=== PATIENT | female | born 1995 | race Caucasian/White ===

== ENCOUNTER 2018-03-03 08:50 | Inpatient (IN) ==
[2018-03-04] MEDS ORDERED: ACETAMINOPHEN 500 MG TABLET PO PRN (17:00)
[2018-03-04] MEDS ORDERED: MAG-AL + SIM ORAL LIQUID 30ml PO PRN (17:00)
[2018-03-04] MEDS ORDERED: METHYLERGONOVINE 0.2 MG/ML INJECTION IM PRN (17:00)
[2018-03-04] MEDS ORDERED: CARBOPROST 250 MCG/ML INJECTION IM PRN (17:00)
[2018-03-04] MEDS ORDERED: CALCIUM CARBONATE Chewable 500mg TABLET PO PRN (17:00)
[2018-03-04] MEDS ORDERED: SALINE FLUSH 10ml SYRINGE IV PRN (17:00)
[2018-03-04] MEDS ORDERED: TERBUTALINE 1 MG/ML VIAL SQ PRN (17:00)
[2018-03-04] MEDS ORDERED: LIDOCAINE 1% (10mg/ml) 2mL INJ PF SDV ID PRN (17:00)
[2018-03-04] MEDS ORDERED: DINOPROSTONE 10 MG VAGINAL INSERT VG ONE (17:00)
--- OUTSIDE RECORDS SUMMARY | 2018-03-04 17:01 | External Medical Summary ---
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
--- OUTSIDE RECORDS SUMMARY | 2018-03-04 17:01 | External Medical Summary | Continuity of Care Document ---
:1995 Author Organization [facility] Address [address] [place], [place] [id number] Phone Care Team Providers Name Role Phone Giuliano Reagan MD Unavailable Unavailable Allergies, Adverse Reactions, Alerts Substance Reaction Severity Status No Known Drug Allergies Unknown Active Medications Medication Instructions Dosage Effective Dates Status Comments (start - stop) valacyclovir 500 mg take 1 tablet by - Active tablet oral route every 12 hours for 5 days multivitamin tablet take 1 tablet by Not Available - Active oral route every day with food 28 mg take 1 tablet by Not Available - Active iron-800 mcg tablet oral route every day Problems Condition Effective Dates (start - stop) Clinical Status Other viral diseases complicating - , first trimester Encntr for suprvsn of normal first - preg, first trimester 9 weeks gestation of - Encntr for suprvsn of normal first - preg, first trimester 11 weeks gestation of - Herpes Simplex Virus Active Procedures Procedure Date Immuniz admnin, 1 vac, sngl/combo 19 Yrs + Flu Vaccine - Quadrivalent Initial OB Visit No Charge - [employer] Results Test Name Date and Time Measure Units Reference Range Abnormal Flag Comments Panel Description: OBSTETRIC PANEL WHITE BLOOD CELL 11.3 Thousand/uL 3.8-10.8 H COUNT 08:05:00 RED BLOOD CELL 3.85 Million/uL 3.80-5.10 N COUNT 08:05:00 HEMOGLOBIN 11.8 g/dL 11.7-15.5 N 08:05:00 HEMATOCRIT 34.7 % 35.0-45.0 L 08:05:00 MCV 90.1 fL 80.0-100.0 N 08:05:00 MCH 30.6 pg 27.0-33.0 N 08:05:00 MCHC 34.0 g/dL 32.0-36.0 N 08:05:00 RDW 12.6 % 11.0-15.0 N 08:05:00 PLATELET COUNT 280 Thousand/uL 140-400 N 08:05:00 MPV 10.6 fL 7.5-12.5 N 08:05:00 ABSOLUTE 7955 cells/uL 2717-2431 H NEUTROPHILS 08:05:00 ABSOLUTE 2678 cells/uL 850-3900 N LYMPHOCYTES 08:05:00 ABSOLUTE 497 cells/uL 200-950 N MONOCYTES 08:05:00 ABSOLUTE 136 cells/uL 15-500 N EOSINOPHILS 08:05:00 ABSOLUTE 34 cells/uL 0-200 N BASOPHILS 08:05:00 NEUTROPHILS 70.4 % N 08:05:00 LYMPHOCYTES 23.7 % N 08:05:00 MONOCYTES 4.4 % N 08:05:00 EOSINOPHILS 1.2 % N 08:05:00 BASOPHILS 0.3 % N 08:05:00 ANTIBODY SCREEN, NO ANTIBODIES N RBC W/REFL ID, 08:05:00 DETECTED Reference range TITER AND AG No antibodies detected This assay is a screening test for the detection of red blood cell antibodies. The test is not to be used for pretransfusion screening or for the medical management of an alloimmunized . ABO GROUP B 08:05:00 RH TYPE RH(D) 08:05:00 POSITIVE RPR (DX) W/REFL NON-REACTIVE NON-REACTIV N TITER AND 08:05:00 E CONFIRMATORY TESTING HEPATITIS B NON-REACTIVE NON-REACTIV N SURFACE ANTIGEN 08:05:00 E RUBELLA ANTIBODY 6.74 index N Index (IGG) 08:05:00 Interpretation ----- <0.90 Not consistent with Immunity 0.90-0.99 Equivocal > or=1.00 Consistent with Immunity The presence of rubella IgG antibody suggests immunization or past or current infection withrubella virus.Test performed at [facility] [place] [address]Wmotqig r: LIDIA POWERS DO,MPH Panel Description: HIV 1/2 ANTIGEN/ANTIBODY,FOURTH GENERATION W/RFL HIV NON-REACTIVE NON-REACTIVE N HIV-1 antigen and HIV-1/HIV- 2 antibodies were AG/AB, 08:05:00 notdetected. There is no laboratory evidence of 4TH GEN HIVinfection. PLEASE NOTE: This information has been disclosed toyou from records whose confidentiality may beprotected by state law. If your state requires suchprotection, then the state law prohibits you frommaking any further disclosure of the informationwithout the specific written consent of the personto whom it pertains, or as otherwise permitted by law.A general authorization for the release of medical orother information is NOT sufficient for this purpose. For additional information please refer tohttp://education.AdXpose/faq/FMJ036(This link is being provided for informational/educational purposes only.) The performance of this assay has not been clinicallyvalidated in patients less than 2 years old. REPORT COMMENT:FASTING:NOTest performed at [facility] [id number] [facility] [place] [address]Kabrqznv: LIDIA POWERS DO,MPH Panel Description: Bacteria identified in Urine by Culture CULTURE, URINE, SEE NOTE CULTURE, URINE, ROUTINE MICRO ROUTINE 15:19:00 NUMBER: [id number] TEST STATUS: FINAL SPECIMEN SOURCE: URINE SPECIMEN QUALITY: ADEQUATE RESULT: Multiple organisms present, each less than 10,000 CFU/mL. These organisms, commonly found on external and internal genitalia, are considered to be colonizers. No further testing performed.REPORT COMMENT:RFASTING:UNKNOWNTest performed at [facility] [id number] [place] [address]Sbofelpy: LIDIA POWERS DO,MPH Panel Description: CHLAMYDIA/N. GONORRHOEAE RNA, TMA CHLAMYDIA DETECTED NOT DETECTED A A positive CT or NG TRACHOMATIS RNA, 15:18:00 Nucleic Acid TMA Amplification Test(NAAT) result should be interpreted in conjunctionwith other laboratory and clinical data available tothe clinician. If clinically indicated, further testing can be performed on the same sample usingan alternate molecular target. To order alternatetarget test use 85115 (C. trachomatis) or 13130 (N. gonorrhoeae). NEISSERIA NOT DETECTED NOT DETECTED N GONORRHOEAE RNA, 15:18:00 TMA [id number] SEE NOTE This test was 15:18:00 performed using the [employer] COMBO2 Assay([employer] The analytical performance characteristics of this assay, when used to test SurePath specimens havebeen determined by [employer]. REPORT COMMENT:FASTING:UNKNO WNTest performed at [facility] [id number] [place] [address]Wwmohmio: LIDIA POWERS DO,MPH Panel Description: Pap Smear, Autocyte Document Pap Smear 14:15:00 See scanned report Advance Directives Directive Yes / No Effective Date File Name Unknown Encounters Encounter Practice Location Reason(s) Diagnoses Date Provider Care Description For Visit Team Members [facility] Encntr for Rahul In Women suprvsn of normal -[address], first preg, first Medical [address], [email or web address] weeks [place], [place], gestation of Luis Felipe Lew [id number], 120, [place], tel:[phone] [place], [id number] , [place]. tel: [phone] Angel Zuleta Other viral Rahul In Womens diseases -[address], complicating Medical [address], , [place], [place], trimesterEncntr Luis Felipe Lew [id number], for suprvsn of 120, [place] normal first [place], tel:[phone] preg, [place], [address] [id number] weeks [id number] gestation of , [place]. tel:[phone] Family History Family Member Diagnosis Age At Onset No family history of Venous Thrombosis No family history of Breast Cancer No family history of Ovarian Cancer Maternal Grandfather Esophageal Cancer No family history of Colon Cancer No family history of Pulmonary Embolism No family history of Lung Disease No family history of Stroke No family history of Uterine Cancer No family history of Cardiovascular Disease No family history of Osteoporosis No family history of Epilepsy No family history of Diabetes No family history of Thyroid Disorder No family history of Kidney Disease No family history of Hypertension Immunizations Vaccine Date Status Comments Influenza, injectable, completed Source: New Immunization Record quadrivalent, preservative free, 3 yrs or older Payers Payer name Insurance type Covered democrat ID Authorization(s) R CI [id number] R CI [id number] Social History Type Description Quantity Date Captured Alcohol Use Details No Caffeine Use Details No Tobacco Use Status Never smoked tobacco Smoking Status Never smoker Vital Signs Date / Height Weight BMI Pulse Blood Temperature Respiratory Body Head BMI Time: Rate Pressure Rate Surface Circumference percentile Area 180.00 31.8 113/80 2017 lbs 8 mm[Hg] 2:32 kg/m PM eter (2) Chief Complaint And Reason For Visit Unknown Chief Complaint And Reason For Visit Reason For Referral Reason For Referral Unknown Plan Of Care Date Type Action Status Appointment Norma Foote BOOKED Date Type Problem Goal Intervention Status Start Date Unknown. History Of Present Illness Encounter Date Complaint History Of Present Illness This patient has no known history of present illness Functional Status Encounter Date Functional Assessment Cognitive Assessment Unknown Medications Administered Medication Instructions Dosage Effective Dates (start - stop) Status Comments Drug Treatment Unknown Instructions Date Instruction Additional Information anticipated course of care nutrition and weight gain counseling, special diet toxoplasmosis precautions (cats / raw meat) sexual activity exercise indications for ultrasound influenza vaccine environmental / work hazards travel tobacco (ask, advise, assess, assist and arrange) alcohol illicit / recreational drugs use of any medications (including supplements, vitamins, herbs, OTC drugs) HIV and other routine tests risk factors identified by history smoking counseling domestic violence seat belt use childbirth classes / hospital facilities hospital registration genetic testing new ob handbook
--- OUTSIDE RECORDS SUMMARY | 2018-03-04 17:02 | External Medical Summary | Continuity of Care Document ---
:1995 Author Organization [facility] Address [address] [place], [place] [id number] Phone Care Team Providers Name Role Phone Giuliano Reagan MD Unavailable Unavailable Allergies, Adverse Reactions, Alerts Substance Reaction Severity Status No Known Drug Allergies Unknown Active Medications Medication Instructions Dosage Effective Dates Status Comments (start - stop) acyclovir 400 mg take 1 by Oral route Not Available - Active tablet every 8 hours until delivery 28 mg take 1 tablet by Not Available - Active iron-800 mcg oral route every tablet day iron 325 mg (65 mg take 1 tablet by 325 MG - Active iron) tablet oral route every day Problems Condition Effective Dates (start - stop) Clinical Status Encntr for suprvsn of normal first - preg, third trimester 36 weeks gestation of - Encntr for suprvsn of normal first - preg, first trimester 11 weeks gestation of - Other viral diseases complicating - , third trimester Encntr for suprvsn of normal first - preg, third trimester 38 weeks gestation of - Uterine size-date discrepancy, third - trimester 38 weeks gestation of - Oth infect w sexl mode of transmiss - comp preg, second tri Encntr for suprvsn of normal first - preg, second trimester 27 weeks gestation of - Other viral diseases complicating - , first trimester Encntr for suprvsn of normal first - preg, first trimester 9 weeks gestation of - Abnormal Pap, LSIL Encntr for suprvsn of normal first preg, third trimester 30 weeks gestation of - Encntr for suprvsn of normal first - preg, second trimester 23 weeks gestation of - Encntr for suprvsn of normal first - preg, second trimester Encounter For Screening For - Malformations 16 weeks gestation of - Encntr for suprvsn of normal first - preg, second trimester 19 weeks gestation of - Encntr for suprvsn of normal first - preg, third trimester 37 weeks gestation of - Encntr for suprvsn of normal first - preg, third trimester 34 weeks gestation of - Encntr for suprvsn of normal first - preg, third trimester 32 weeks gestation of - Encounter For Screening For - Malformations 19 weeks gestation of - Herpes Simplex Virus Active Procedures Procedure Date OB Visit No Charge Immuniz admnin, 1 vac, sngl/combo 19 Yrs + TDAP VACCINE >7 IM Results Test Name Date and Time Measure Units Reference Range Abnormal Flag Comments Panel Description: Strep Gp B Culture Strep Gp B Positive Negative A Centers for Disease Control Culture 14:15:00 and Prevention (CDC) and [place] Congressof Obstetricians and Gynecologists (ACOG) guidelines for prevention ofperinatal group B streptococcal (GBS) disease specify co-collection ofa vaginal and rectal swab specimen to maximize sensitivity of GBSdetection. Per the CDC and ACOG, swabbing both the lower vagina andrectum substantially increases the yield of detection compared withsampling the vagina alone. .Penicillin G, ampicillin, or cefazolin are indicated for intrapartumprophylaxis of GBS colonization. Reflex susceptibilitytesting should be performed prior to use of clindamycin only on GBSisolates from penicillin-allergic women who are considered a high riskfor anaphylaxis. Treatment with vancomycin without additional testingis warranted if resistance to clindamycin is noted. Advance Directives Directive Yes / No Effective Date File Name Unknown Encounters Encounter Practice Location Reason(s) Diagnoses Date Provider Care Team Description For Visit Members [facility] Other viral Felipe-0 Rahul In Womens diseases 6-201 [place]. [facility] [place], complicating 8 Medical [address] , third Center 1522, trimesterEncntr Luis Felipe Lew, for suprvsn of 120, [place], normal first [place], [id number], preg, third [place], [email or web address] weeks tel: gestation of , [place]. tel: [phone] Angel Zuleta Uterine size-date Felipe-0 Rahul In Womens Ultrasound discrepancy, - [place]. [facility], third [email or web address] 8 Medical PO Box weeks gestation Center 1522, of Luis Felipe Lew, [facility], [place], Song, , [place], [place] tel: , [place]. tel: [phone] Angel Zuleta Encntr for May-3 Rahul In Womens suprvsn of normal 1-201 [place]. [facility] [place], first preg, third 8 Medical PO Box [email or web address] weeks Center 1522, gestation of Luis Felipe Lew, 120, [place], Song, [id number], [place], [place] [id number] tel: , [place]. tel: [phone] Angel Carmona for May-2 Rahul Referring In Womens suprvsn of normal 4-201 [place]. 700 Provider: [facility] [place], first preg, third 8 Medical [place] PO Box [email or web address] weeks Center Rahul R, 1522, gestation of Luis Felipe Lew, 120, Medical [place], [place], [place] , [place], [facility] , [place] Song, tel: , [place]. [place] tel:[phone]. [id number] tel:[phone] Angel Zuleta May-1 Rahul In Womens 6-201 [place]. [facility], 8 Medical PO Box Center 1522, Luis Felipe Lew, 120, [place], [place], [id number], [place], [place] [id number] tel:+ , [place]. tel: [phone] [facility] Encntr for May-1 [facility]ul In Womens suprvsn of normal 0-201 [place]. [facility] [place], first preg, third 8 Medical PO Box weeks Center 1522, gestation of Luis Felipe Lew, 120, [place], [place], [id number], [place], [place] [id number] tel:+ , [place]. tel: [phone] [facility] Encntr for Apr-2 Rahul In Womens suprvsn of normal 5-201 [place]. [facility] [place], first preg, third 8 Medical PO Box [email or web address] weeks Center 1522, gestation of Luis Felipe Lew, 120, [place], [place], , [place], [place] [id number] tel:+ , [place]. tel: [phone] [facility] Abnormal Pap, Apr-1 Rahul In Womens LSILEncntr for 1-201 [place]. [facility] [place], suprvsn of normal 8 Medical PO Box first preg, third Center 1522, [email or web address] weeks Luis Felipe Lew, gestation of 120, [place], [place], , [place], [place] [id number] tel:+ , [place]. tel: [phone] [facility] Oth infect w sexl Mar-2 Rahul In Womens mode of transmiss 1-201 [place]. [facility] [place], comp preg, second 8 Medical PO Box triEncntr for Center 1522, suprvsn of normal Luis Felipe Lew, first preg, 120, [place], second Song, , [email or web address] weeks [place], [place] gestation of [id number] tel:+ , [place]. tel: [phone] [facility] Encntr for Feb-2 Rahul In Womens suprvsn of normal 2-201 [place]. [facility] [place], first preg, 8 Medical PO Box second Center 1522, [email or web address] weeks Luis Felipe Lew, gestation of 120, [place], [place], [id number], [place], [place] tel:+ , [place]. tel: [phone] [facility] Encntr for Alvarado-2 Rahul In Womens suprvsn of normal 5-201 [place]. [facility] [place], first preg, 8 Medical PO Box second Center 1522, [email or web address] weeks Luis Felipe Lew, gestation of 120, [place], [place], [id number], [place], [place] tel: , [place]. tel: [phone] [facility] Encounter For Alvarado-2 Rahul In Womens Ultrasound 5-201 [place]. [facility] [place], Screening For 8 Medical PO Box [email or web address] Center 1522, weeks gestation Luis Felipe Lew, of 120, [place], [place], [id number], [place], [place] tel: , [place]. tel: [phone] [facility] Encntr for Alvarado-0 Rahul In Womens suprvsn of normal 3-201 [place]. [facility] [place], first preg, 8 Medical PO Box second Center 1522, trimesterEncounte Luis Felipe Lew, r For 120, [place], Screening For [place], [id number], [email or web address] [place], [place] weeks gestation tel: of , . tel: [phone] [facility] Encntr for Nov-3 Rahul In Womens suprvsn of normal 0-201 [place]. [facility] [place], first preg, first 7 Medical PO Box [email or web address] weeks Center 1522, gestation of Luis Felipe Lew, 120, [place], [place], [id number], [place], [place] [id number] tel: , . tel: [phone] [facility] Other viral Nov-1 Rahul In Womens diseases 5-201 [place]. 700 [facility] [place], complicating 7 Medical PO Box , first Center 1522, trimesterEncntr Luis Felipe Lew, for suprvsn of 120, [place], normal first [place], [id number], preg, first [place], [place] trimester9 weeks tel:+ gestation of , [place]. tel:[phone] Family History Family Member Diagnosis Age At [...] of Hypertension Immunizations Vaccine Date Status Comments Tdap completed Source: New Immunization Record Influenza, injectable, completed Source: New Immunization Record quadrivalent, preservative free, 3 yrs or older Payers Payer name Insurance type Covered libertarian ID Authorization(s) [employer] [place] - Medicaid MC [id number] [facility] CI [id number] [employer] [place] - Medicaid MC [id number] [facility] CI [id number] Social History Type Description Quantity Date Captured Alcohol Use Details No Caffeine Use Details Unknown Tobacco Use Status Unknown Smoking Status Never smoker Vital Signs Date / Height Weight BMI Pulse Blood Temperature Respiratory Body Head BMI Time: Rate Pressure Rate Surface Circumference percentile Area 227.90 40.3 / lbs 7 mm[Hg] 1:58 kg/m PM eter (2) Chief Complaint And Reason For Visit Unknown Chief Complaint And Reason For Visit Reason For Referral Reason For Referral Unknown Plan Of Care Date Type Action Status Appointment Norma Foote BOOKED Future Order: Radiology Order Ultrasound OB Follow-up ([id number]) Ordered Future Order: Radiology Order Complete OB Ultrasound > 14 Ordered Weeks ([id number]) Date Type Problem Goal Intervention Status Start [...]
--- OUTSIDE RECORDS SUMMARY | 2018-03-04 17:02 | External Medical Summary | Continuity of Care Document ---
:1995 Author Organization [facility] Address [address] [place], [place] [address] Phone Care Team Providers Name Role Phone Giuliano Reagan MD Unavailable Unavailable Allergies, Adverse Reactions, Alerts Substance Reaction Severity Status No Known Drug Allergies Unknown Active Medications Medication Instructions Dosage Effective Dates Status Comments (start - stop) valacyclovir 500 mg take 1 tablet by - Active tablet oral route every 12 hours for 5 days 28 mg take 1 tablet by Not Available - Active iron-800 mcg tablet oral route every day Problems Condition Effective Dates (start - stop) Clinical Status Oth infect w sexl mode of transmiss - comp preg, second tri Encntr for suprvsn of normal first - preg, second trimester 27 weeks gestation of - Encntr for suprvsn [...] second trimester 19 weeks gestation of - Encounter For Screening For - Malformations 19 weeks gestation of - Herpes Simplex Virus Active Procedures Procedure Date OB Visit No Charge Infct antign, chlamydia trac, ampl Neisseria Gonorrhea, Amplified DNA Results Test Name Date and Time Measure Units Reference Range Abnormal Flag Comments Panel Description: Glucose [Mass/volume] in Serum or Plasma --1 hour post 50 g glucose PO Gestational Diabetes 15:07:00 93 mg/dL 65-139 According to ADA, a glucose Screen threshold of >139 mg/dL after 50-gramload identifies approximately 80% of women with gestationaldiabetes mellitus, while the sensitivity is further increased toapproximately 90% by a threshold of >129 mg/dL. Panel Description: Hemoglobin [Mass/volume] in Blood Hemoglobin 15:07:00 10.7 g/dL 11.1-15.9 L Panel Description: Hematocrit [Volume Fraction] of Blood by Automated count Hematocrit 15:07:00 32.7 % 34.0-46.6 L Panel Description: GC/CT Amplified Probe Chlamydia Trachomatis RNA, TMA 14:21:57 Negative Negative N Neisseria Gonorrhoeae RNA, TMA 14:21:57 Negative Negative N Advance Directives Directive Yes / No Effective Date File Name Unknown Encounters Encounter Practice Location Reason(s) Diagnoses Date Provider Care Description For Visit Team Members Angel Zuleta Apr-0 Rahul In Womens 3-[address], 8 Medical PO Box Center 1522, Luis Felipe Lew, 120, [place], [place], [id number], [place], [place] [id number] tel: , [place]. [id number] tel: [phone] Angel Zuleta Oth infect w sexl Nov-2 Rahul In Women mode of transmiss 1-[address], comp preg, second 8 Medical PO Box triEncntr for Center 1522, suprvsn of normal Luis Felipe Lew, first preg, second 120, [place], [email or web address] weeks Song, [id number], gestation of [place], [place] [id number] tel:+ , [place]. tel: [phone] [facility] Encntr for suprvsn Feb-2 Rahul In Womens of normal first 2-201 [place]. 700 [facility] [place], preg, second 8 Medical PO Box [email or web address] weeks Center 1522, gestation of Luis Felipe Lew, 120, [place], [place], [id number], [place], [place] [id number] tel:+ , [place]. tel: [phone] [facility] Encntr for suprvsn Alvarado-2 Rahul In Womens of normal first 5-201 [place]. 700 [facility] [place], preg, second 8 Medical PO Box [email or web address] weeks Center 1522, gestation of Luis Felipe Lew, 120, [place], [place], [id number], [place], [place] [id number] tel:+ , [place]. tel: [phone] [facility] Encounter For Alvarado-2 Rahul In Womens Ultrasound Screening 5-201 [place]. 700 [facility] [place], For [email or web address] 8 Medical PO Box weeks gestation of Center 1522, Luis Felipe Lew, 120, [place], [place], [id number], [place], [place] tel: , [place]. tel: [phone] [facility] Encntr for suprvsn Alvarado-0 Rahul In Womens of normal first 3-201 [place]. 700 [facility] [place], preg, second 8 Medical PO Box trimesterEncounter Center 1522, For Luis Felipe Lew, Screening For 120, [place], [id number] [place], , weeks gestation of [place], [place] [id number] tel:+ , [place]. tel: [phone] Angel Zuleta Encntr for suprvsn Nov-3 Rahul In Womens of normal first 0-201 [place]. 700 [facility] [place], preg, first 7 Medical PO Box [email or web address] weeks Center 1522, gestation of Luis Felipe Lew, 120, [place], [place], [id number], [place], [place] [id number] tel: , [place]. tel: [phone] Angel Zuleta Other viral Nov-1 Rahul In Womens diseases 5-[address], complicating 7 Medical PO Box , first Center 1522, trimesterEncntr for Luis Felipe Lew, suprvsn of normal 120, [place], first preg, first [place], [id number], trimester9 weeks [place], [place] gestation of [id number] tel:+ , [place]. tel: [phone] Family History Family Member Diagnosis Age At [...] [employer] Plan Of [place] - Medicaid MC [id number] [facility] CI [id number] [facility] CI [id number] Social History Type Description Quantity Date Captured Alcohol Use Details No Caffeine Use Details Unknown Tobacco Use Status Unknown Smoking Status Never smoker Vital Signs Date / Height Weight BMI Pulse Blood Temperature Respiratory Body Head BMI Time: Rate Pressure Rate Surface Circumference percentile Area 209.00 37.0 125/2018 lbs 2 mm[Hg] 2:08 kg/m PM eter (2) Chief Complaint And Reason For Visit Unknown Chief Complaint And Reason For Visit Reason For Referral Reason For Referral Unknown Plan Of Care Date Type Action Status Future Order: Radiology Order Complete OB Ultrasound > 14 Ordered Weeks ([id number]) Date Type Problem Goal Intervention Status Start [...]
--- OUTSIDE RECORDS SUMMARY | 2018-03-04 17:02 | External Medical Summary | Continuity of Care Document ---
:1995 Author Organization [facility] [employer] [facility] Address [address] [place], [place] [phone] Phone Care Team Providers Name Role Phone [...] Herpes Simplex Virus Active Procedures Procedure Date Unknown Results Test Name Date and Time Measure Units Reference Range Abnormal Flag Comments Unknown Advance Directives Directive Yes / No Effective Date File Name Unknown Encounters Encounter Practice Location Reason(s) Diagnoses Date Provider Care Description For Visit Team Members [facility] Feb-0 Rahul In Womens 1-201 [place]. [facility] [place], 8 Medical PO Box Center [address], Luis Felipe Lew, 120, [place], [place], [id number], [place], [place] [id number] tel:+ , [place]. tel: [phone] [facility] Encntr for suprvsn Alvarado-2 Rahul In Womens of normal first 5-201 [place]. [facility] [place], preg, second 8 Medical PO Box [email or web address] weeks Center 1522, gestation of Luis Felipe Lew, 120, [place], [place], [id number], [place], [place] [id number] tel: , [place]. tel: [phone] [facility] Encounter For Alvarado-2 Rahul In Womens Ultrasound Screening 5-201 [place]. [facility] [place], For [id number] 8 Medical PO Box weeks gestation of Center 1522, Luis Felipe Lew, 120, [place], [place], , [place], [place] [id number] tel: , [place]. tel: [phone] [facility] Alvarado-1 Rahul In Womens 5-201 [place]. [facility] [place], 8 Medical PO Box Center [address], Luis Felipe Lew, 120, [place], [place], , [place] [id number] tel: , [place]. tel: [phone] [facility] Encntr for suprvsn Alvarado-0 Rahul In Womens of normal first 3-201 [place]. [facility] [place], preg, second 8 Medical PO Box trimesterEncounter Center 1522, For Luis Felipe Lew, Screening For 120, [place], [id number] [place], , weeks gestation of [place], [place] [id number] tel: , [place]. tel: [phone] [facility] Encntr for suprvsn Nov-3 Rahul In Womens of normal first 0-201 [place]. [facility] [place], preg, first 7 Medical PO Box [email or web address] weeks Center 1522, gestation of Luis Felipe Lew, 120, [place], [place], , [place] [id number] tel: , [place]. tel: [phone] [facility] Other viral Nov- Rahul In Womens diseases 5-[address], complicating 7 Medical PO Box , first Center 1522, trimesterEncntr for Luis Felipe Lew, suprvsn of normal 120, [place], first preg, first [place], [id number], trimester9 weeks [place], gestation of tel: , [place]. tel: [phone] Family History Family Member Diagnosis Age At [...] older Payers Payer name Insurance type Covered green party ID Authorization(s) U[facility] CI [id number] [employer] [place] - Medicaid MC [id number] R CI [id number] Social History Type Description Quantity Date Captured Unknown Vital Signs Date / Height Weight BMI Pulse Blood Temperature Respiratory Body Head BMI Time: Rate Pressure Rate Surface Circumference percentile Area Unknown Chief Complaint And Reason For Visit Unknown Chief Complaint And Reason For Visit Reason For Referral Reason For Referral Unknown Plan Of Care Date Type Action Status Appointment Norma Foote BOOKED Future Order: Radiology Order Complete OB Ultrasound > 14 Ordered Weeks (07137) Date Type Problem Goal Intervention Status Start [...]
--- OUTSIDE RECORDS SUMMARY | 2018-03-04 17:02 | External Medical Summary | Continuity of Care Document ---
:1995 Author Organization [facility] Address [address] [place], [place] [phone] Phone Care Team Providers Name Role Phone [...] first trimester 11 weeks gestation of - Encntr for suprvsn of normal first - preg, second trimester Encounter For Screening For - Malformations 16 weeks gestation of - Herpes Simplex Virus Active Procedures Procedure Date Unknown Results Test Name Date and Time Measure Units Reference Range Abnormal Flag Comments Unknown Advance Directives Directive Yes / No Effective Date File Name Unknown Encounters Encounter Practice Location Reason(s) Diagnoses Date Provider Care Description For Visit Team Members [facility] Encntr for suprvsn Sep-0 Rahul In Womens of normal first 3-[address], preg, second 8 Medical [address], [place], [place], For Luis Felipe Lew [id number], Screening For 120, [place] [id number] [place], tel:+[phone] [place], [id number] , [place]. tel: [phone] Angel [facility] Alvarado-0 Rahul In Womens 2-201 [place]. [facility] [place], 8 Medical [address], [place], [place], Luis Felipe Lew [id number], 120, [place], tel:[phone] [place], [id number] , [place]. tel: [phone] Angel [facility] Encntr for suprvsn Nov-3 Rahul In Womens of normal first 0-201 [place]. [facility] [place], preg, first 7 Medical [address], [email or web address] weeks [place], [place], gestation of Luis Felipe Lew [id number], 120, [place], tel:+[phone] [place], [phone] , [place]. tel: [phone] [facility] Other viral Nov-1 Rahul In Womens diseases 5-201 [place]. [facility] [place], complicating 7 Medical [address], , first Center [place], [place], trimesterEncntr for Luis Felipe Lew [id number], suprvsn of normal 120, [place] first preg, first [place], tel:+[phone] trimester9 [place], [address] gestation of [id number] , [place]. tel: [phone] Family History Family Member Diagnosis Age At [...] older Payers Payer name Insurance type Covered republican ID Authorization(s) [facility] CI [id number] [facility] CI [id number] Social History Type Description Quantity Date Captured Alcohol Use Details No Caffeine Use Details Unknown Tobacco Use Status Unknown Smoking Status Never smoker Vital Signs Date / Height Weight BMI Pulse Blood Temperature Respiratory Body Head BMI Time: Rate Pressure Rate Surface Circumference percentile Area 7 8 2:38 kg/m PM eter (2) Chief Complaint And Reason For Visit Unknown Chief Complaint And Reason For Visit Reason For Referral Reason For Referral Unknown Plan Of Care Date Type Action Status Appointment Norma Foote BOOKED Appointment Norma Foote BOOKED Date Type Problem [...]
--- OUTSIDE RECORDS SUMMARY | 2018-03-04 17:02 | External Medical Summary | Continuity of Care Document ---
:1995 Author Organization [facility] [employer] [facility] Address [address] [place], [place] [phone] Phone Care Team Providers Name Role Phone Giuliano Reagan MD Unavailable Unavailable Allergies, Adverse Reactions, Alerts Substance Reaction Severity Status No Known Drug Allergies Unknown Active Medications Medication Instructions Dosage Effective Dates Status Comments (start - stop) valacyclovir 500 take 1 tablet by - Active mg tablet oral route every 12 hours for 5 days 28 mg take 1 tablet by Not Available - Active iron-800 mcg oral route every tablet day multivitamin take 1 tablet by Not Available - Active tablet oral route every day with food Zithromax Z-Terrence take 2 by Oral - No Longer 250 mg tablet route on Day 1 Active then 1 tablet Day 2-5 Problems Condition Effective Dates (start - stop) Clinical Status Encntr for suprvsn of normal first - preg, first trimester 11 weeks gestation of - Other viral diseases complicating - , first trimester Encntr for suprvsn of normal first - preg, first trimester 9 weeks gestation of - Herpes Simplex Virus Active Procedures Procedure Date OB Visit No Charge - [employer] Results Test Name Date and Time Measure Units Reference Range Abnormal Flag Comments Unknown Advance Directives Directive Yes / No Effective Date File Name Unknown Encounters Encounter Practice Location Reason(s) Diagnoses Date Provider Care Description For Visit Team Members [facility] Encntr for Rahul In [facility] suprvsn of normal -[address], first preg, first Medical [address], [email or web address] weeks Center [place], gestation of Luis Felipe Lew [id number], 120, [place], tel:+21 [place], [id number] , [place]. tel: [phone] [facility] Other viral Rahul In Womens diseases -[address], complicating Medical [address], , first [place], trimesterEncntr Luis Felipe Lew [id number], for suprvsn of 120, [place] normal first [place], tel:+21 [place], [place], [address] trimester9 weeks [id number] gestation of , [place]. tel: [phone] Family History Family Member Diagnosis Age At [...] Insurance type Covered green party ID Authorization(s) [facility] CI [id number] [facility] CI [id number] Social History Type Description Quantity Date Captured Alcohol Use Details No Caffeine Use Details Unknown Tobacco Use Status Unknown Smoking Status Never smoker Vital Signs Date / Height Weight BMI Pulse Blood Temperature Respiratory Body Head BMI Time: Rate Pressure Rate Surface Circumference percentile Area 185.10 32.7 lbs 8 mm[Hg] 1:22 kg/m PM eter (2) Chief Complaint And [...]
--- OUTSIDE RECORDS SUMMARY | 2018-03-04 17:02 | External Medical Summary | Continuity of Care Document ---
:1995 Author Organization [facility] [employer] [place] Address [address] [place], [place] [phone] Phone Care Team Providers Name Role Phone [...] Description For Visit Team Members Angel [facility] Encntr for Rahul In [facility] suprvsn of normal -[address], first preg, first Medical [address], [email or web address] weeks Center [place], [place], gestation of Luis Felipe Lew [id number], 120, [place], tel:[phone] [place], [id number] , [place]. tel: [phone] Angel [facility] Rahul In Womens -2017 [place] [facility], Medical [address], Center [place], [place], Luis Felipe Lew [id number], 120, [place], tel:[phone] [place], [id number] , [place]. tel: [phone] [facility] Other viral Jul- Rahul In Womens diseases -2017 [facility], complicating Medical [address], , first Center [place], [place], trimesterEncntr , Luis Felipe [id number], for suprvsn of 120, [place] normal first [place], tel:+21 [place], [place], [address] trimester9 weeks [id number] gestation of , [place]. tel: [phone] Family History Family Member Diagnosis Age At [...] name Insurance type Covered democrat ID Authorization(s) [facility] CI [id number] [facility] CI [id number] Social History Type Description Quantity Date Captured [...]
--- OUTSIDE RECORDS SUMMARY | 2018-03-04 17:02 | External Medical Summary | Continuity of Care Document ---
:1995 Author Organization [facility] [employer] [facility] Address [address] [place], [place] [phone] Phone Care Team Providers Name Role Phone [...] first trimester 11 weeks gestation of - Oth infect w [...] Visit Team Members Angel [facility] Encntr for suprvsn January- Rahul In Womens of normal first 0-201 [place]. [facility] [place], preg, third 8 Medical PO Box [email or web address] weeks Center 1522, gestation of Luis Felipe Lew, 120, [place], [place], [id number], [place], [place] [id number] tel:+ , [place]. tel: [phone] Angel [place] Encntr for suprvsn Dec-2 Rahul In Womens of normal first 5-201 [place]. [facility] [place], preg, third 8 Medical PO Box [email or web address] weeks Center 1522, gestation of Luis Felipe Lew, 120, [place], [place], [id number], [place], [place] [id number] tel: , [place]. tel: [phone] Angel [facility] Apr-2 Rahul In Womens 5-201 [place]. [facility] [place], 8 Medical PO Box Center [address], Luis Felipe Lew, 120, [place], [place], [id number], [place], [place] [id number] tel:316 , [place]. tel:[phone] Angel [facility] Abnormal Pap, Apr-1 Rahul In Womens LSILEncntr for 1-201 [place]. [facility] [place], suprvsn of normal 8 Medical PO Box first preg, third Center 1522, [email or web address] weeks Luis Felipe Lew, gestation of 120, [place], [place], [id number], [place], [place] [id number] tel: , [place]. tel: [phone] [facility] Apr-0 Rahul In Womens 3-201 [place]. [facility] [place], 8 Medical PO Box [address], Luis Felipe Lew, 120, [place], [place], [id number], [place], [place] [id number] tel: , [place]. tel: [phone] [facility] Oth infect w sexl Mar-2 Rahul In Womens mode of transmiss 1-201 [place]. [facility] [place], comp preg, second 8 Medical PO Box triEncntr for Center 1522, suprvsn of normal Luis Felipe Lew, first preg, second 120, [place], [email or web address] weeks [place], , gestation of [place], [place] [id number] tel:+ , [place]. tel: [phone] [facility] Encntr for suprvsn Feb-2 Rahul In Womens of normal first 2-201 [place]. [facility] [place], preg, second 8 Medical PO Box [email or web address] weeks Center 1522, gestation of Luis Felipe Lew, 120, [place], [place], , [place], [place] [id number] tel:+ , [place]. tel: [phone] [facility] Encntr for suprvsn Alvarado-2 Rahul In Womens of normal first 5-201 [place]. [facility] [place], preg, second 8 Medical PO Box [email or web address] weeks Center 1522, gestation of Luis Felipe Lew, 120, [place], [place], [id number], [place], [place] [id number] tel:+ , [place]. tel: [phone] [facility] Encounter For Alvarado-2 Rahul In Womens Ultrasound Screening 5-201 [place]. [facility] [place], For [email or web address] 8 Medical PO Box weeks gestation of Center 1522, Luis Felipe Lew, 120, [place], [place], [id number], [place], [place] [id number] tel: , [place]. tel: [phone] Angel [facility] Encntr for suprvsn Alvarado-0 Rahul In Womens of normal first 3-201 [place]. [facility] [place], preg, second 8 Medical PO Box trimesterEncounter Center 1522, For Luis Felipe Lew, Screening For 120, [place], [email or web address] [place], [id number], weeks gestation of [place], [place] [id number] tel:+ , [place]. tel: [phone] [facility] Encntr for suprvsn Nov-3 Rahul In Womens of normal first 0-201 [place]. [facility] [place], preg, first 7 Medical PO Box [email or web address] weeks Center 1522, gestation of Luis Felipe Lew, 120, [place], [place], [id number], [place], [place] [id number] tel:+ , [place]. tel: [phone] [facility] Other viral Nov-1 Rahul In Womens diseases 5-201 [place]. 700 [facility] [place], complicating 7 Medical PO Box , first Center 1522, trimesterEncntr for Luis Felipe Lew, suprvsn of normal 120, [place], first preg, first [place], [id number], trimester9 weeks [place], [place] gestation of [id number] tel:+ , [place]. tel: [phone] Family History Family Member Diagnosis Age At [...] older Payers Payer name Insurance type Covered constitution party ID Authorization(s) [employer] [facility] [place] - Medicaid MC [id number] [facility] CI [id number] [facility] CI [id number] Social History Type Description Quantity Date Captured [...] Complete OB Ultrasound > 14 Ordered Weeks (28648) Date Type Problem Goal Intervention Status Start [...]
--- OUTSIDE RECORDS SUMMARY | 2018-03-04 17:02 | External Medical Summary | Continuity of Care Document ---
:1995 Author Organization [facility] [employer] [place] Address [address] [place], [place] [phone] Phone Care Team Providers Name Role Phone Giuliano Reagan MD Unavailable Unavailable Allergies, Adverse Reactions, Alerts Substance Reaction Severity Status No Known Drug Allergies Unknown Active Medications Medication Instructions Dosage Effective Dates Status Comments (start - stop) azithromycin 500 take 2 tablet by 1000 MG - Active mg tablet ORAL route every day for 1 day valacyclovir 500 take 1 tablet by - Active mg tablet oral route every 12 hours for 5 days multivitamin take 1 tablet by Not Available - Active tablet oral route every day with food valacyclovir 500 take 1 tablet by 500 MG - No Longer mg tablet oral route every Active 12 hours Problems Condition Effective Dates (start - stop) [...] Description For Visit Team Members Angel [facility] Rahul In Women -2016 [place] [address] [place], Medical [address], [facility] [place], , Luis Felipe [id number], 120, [place], tel:[phone] [place], [id number] , [place]. tel: [phone] Angel [facility] Other viral Rahul In [facility] diseases -2017 [place]. [facility] [place], complicating Medical [address], , first Center [place], trimesterEncntr , [facility] [id number], for suprvsn of 120, [place] normal first [place], tel:+21 [place], [place], [address] trimester9 weeks [id number] gestation of , [place]. tel: [phone] [facility] Christofer In Womens -2017 [place]. [facility], 700 [address], Medical [place], [place] [id number], , Luis Felipe [place] 120, tel:+21 [place], [address] [place], [id number] , [place]. tel: [phone] Family History Family Member Diagnosis Age At [...] name Insurance type Covered libertarian ID Authorization(s) [facility] CI [id number] [facility] CI [id number] Social History Type Description Quantity Date Captured Alcohol Use Details No Caffeine Use Details No Tobacco Use Status Never smoked tobacco Smoking Status Never smoker Non-Smoking Tobacco Use : No Details Available : No Details Available Details Vital Signs Date / Height Weight BMI [...]
--- OUTSIDE RECORDS SUMMARY | 2018-03-04 17:02 | External Medical Summary | Continuity of Care Document ---
:1995 Author Organization [facility] Address [address] [place], [place] [phone] Phone Care Team Providers Name Role Phone [...] tablet oral route every day with food 28 mg take 1 tablet by Not Available - Active iron-800 mcg oral route every tablet day azithromycin 500 take 2 tablet by 1000 MG - No Longer mg tablet ORAL route every Active day for 1 day Problems Condition Effective Dates (start - [...] Members Angel [place] Encntr for Rahul In [facility] suprvsn of normal -[address], first preg, first Medical [address], [email or web address] weeks Center [place], gestation of Luis Felipe Lew [id number], 120, [place], tel:+21 [place], [id number] , [place]. tel: [phone] [facility] Nov-17 Rahul In Womens -[address] [place], Medical [address], [place], Luis Felipe Lew [id number], 120, [place], tel:+[phone] [place], [id number] , [place]. tel: [phone] [facility] Other viral Nov-15 Rahul In Womens diseases -[address], complicating Medical [address], , first Center [place], [place], trimesterEncntr , Luis Felipe [id number], for suprvsn of 120, [place] normal first [place], tel:+21 preg, [place], [address] trimester9 weeks [id number] gestation of , [place]. tel: [phone] Family History Family Member Diagnosis Age At [...] Insurance type Covered constitution party ID Authorization(s) [facility] CI [id number] [facility] CI [id number] Social History Type Description Quantity Date Captured [...]
--- OUTSIDE RECORDS SUMMARY | 2018-03-04 17:02 | External Medical Summary | Continuity of Care Document ---
:1995 Author Organization [facility] [employer] [facility] Address [address] [place], [place] [phone] Phone Care Team Providers Name Role Phone [...] Description For Visit Team Members Angel Z[facility] Abnormal Pap, Dec- Rahul In Womens LSILEncntr for [place]. 700 [place], suprvsn of normal 8 Medical PO Box first preg, third Center 1522, [email or web address] weeks Luis Felipe Lew, gestation of 120, [place], [place], [id number], [place], [place] tel:+ , [place]. tel: [phone] Angel Zuleta Apr-0 Rahul In Womens 3-201 [place]. 700 [facility], 8 Medical PO Box Center [address], Luis Felipe Lew, 120, [place], [place], [id number], [place], [place] [id number] tel:+ , [place]. tel: [phone] Angel Z[place]ta Oth infect w sexl Nov-2 Rahul In Womens mode of transmiss - [place]. 700 [place], comp preg, second 8 Medical PO Box triEncntr for Center 1522, suprvsn of normal Luis Felipe Lew, first preg, second 120, [place], [email or web address] weeks [place], , gestation of [place], [place] [id number] tel:+ , [place]. tel: [phone] Angel [place] Encntr for suprvsn Oct-2 Rahul In Womens of normal first -201 [place]. 700 [facility] [place], preg, second 8 Medical PO Box [email or web address] weeks Center 1522, gestation of Luis Felipe Lew, 120, [place], [place], [id number], [place], [place] [id number] tel:+ , [place]. tel: [phone] Angel [place] Encntr for suprvsn Alvarado-2 Rahul In Womens of normal first 5-201 [place]. 700 [facility] [place], preg, second 8 Medical PO Box [email or web address] weeks Center 1522, gestation of Luis Felipe Lew, 120, [place], [place], [id number], [place], [place] [id number] tel:+ , [place]. tel: [phone] [facility] Encounter For Alvarado-2 Rahul In Womens Ultrasound Screening 5-201 [place]. 700 [facility] [place], For [id number] 8 Medical PO Box weeks gestation of Center 1522, Luis Felipe Lew, 120, [place], [place], [id number], [place], [place] [id number] tel:+ , [place]. tel: [phone] Angel [place] Encntr for suprvsn Alvarado-0 Rahul In Womens of normal first 3-201 [place]. [facility] [place], preg, second 8 Medical PO Box trimesterEncounter Center 1522, For Luis Felipe Lew, Screening For 120, [place], [id number] [place], [id number], weeks gestation of [place], [place] [id number] tel:+ , [place]. tel: [phone] Angel [place] Encntr for suprvsn Nov-3 Rahul In Womens of normal first 0-201 [place]. [facility] [place], preg, first 7 Medical PO Box [email or web address] weeks Center 1522, gestation of Luis Felipe Lew, 120, [place], [place], [id number], [place], [place] [id number] tel:+ , [place]. tel: [phone] Angel [facility] Other viral Nov-1 Rahul In Womens diseases 5-201 [place]. [facility] [place], complicating 7 Medical PO Box , first Center 1522, trimesterEncntr for Luis Felipe Lew, xiomara of normal 120, [place], first preg, first [place], [id number], trimester9 weeks [place], [place] gestation of [id number] tel:+316 , [place]. tel: [phone] Family History Family Member Diagnosis Age At [...] older Payers Payer name Insurance type Covered alliance party ID Authorization(s) [employer] [facility] [place] - Medicaid MC [id number] [facility] CI [id number] [facility] CI [id number] Social History Type Description Quantity Date Captured [...] Complete OB Ultrasound > 14 Ordered Weeks (27698) Date Type Problem Goal Intervention Status Start [...]
--- OUTSIDE RECORDS SUMMARY | 2018-03-04 17:02 | External Medical Summary | Continuity of Care Document ---
:1995 Author Organization [facility] Address [address] [place], [place] [phone] Phone Care Team Providers Name Role Phone [...] Effective Dates (start - stop) Clinical Status Abnormal Pap, LSIL Encntr for suprvsn of [...] Herpes Simplex Virus Active Procedures Procedure Date Colposcopy Of The Cervix Including Upper/adjacent Vagina OB Visit No Charge Results Test Name Date and Time Measure Units Reference Range Abnormal Flag Comments Unknown Advance Directives Directive Yes / No Effective Date File Name Unknown Encounters Encounter Practice Location Reason(s) Diagnoses Date Provider Care Description For Visit Team Members Associates [facility] Encntr for suprvsn Apr-2 Rahul In Womens of normal first 5-201 [place] [facility] [place], preg, third 8 Medical [address] [email or web address] weeks Center 1522, gestation of Luis Felipe Lew, 120, [place], [place], [id number], [place], [place] [id number] tel:+ , [place]. tel: [phone] Angel [place] Abnormal Pap, Apr-1 Rahul In Womens LSILEncntr for - [place]. [facility] [facility] [place], suprvsn of normal 8 Medical PO Box first preg, third Center 1522, [email or web address] weeks Luis Felipe Lew, gestation of 120, [place], [place], [id number], [place], [place] [id number] tel: , [place]. tel: [phone] Angel [place] Apr-0 Rahul In Womens 3-201 [place] [facility] [facility] [place], 8 Medical PO Box Center 15[address], Luis Felipe Lew, 120, [place], [place], [id number], [place], [place] [id number] tel:+ , [place]. tel:[phone] Angel [place] Oth infect w sexl Mar-2 Rahul In Womens mode of transmiss 1-201 [place] [facility] [facility] [place], comp preg, second 8 Medical PO Box triEncntr for Center 1522, suprvsn of normal Luis Felipe Lew, first preg, second 120, [place], weeks Song, , gestation of [place] [id number] tel:+ , [place]. tel: [phone] Associates [facility] Encntr for suprvsn Feb-2 Rahul In Womens of normal first 2-201 [place], preg, second 8 Medical PO Box [email or web address] weeks Center 1522, gestation of Luis Felipe Lew, 120, [place], [place], [id number], [place] [id number] tel:+ , [place]. tel: [phone] [facility] Encntr for suprvsn Alvarado-2 Rahul In Womens of normal first 5-201 [place] [place], preg, second 8 Medical PO Box weeks Center 1522, gestation of Luis Felipe Lew, 120, [place], [place], [id number], [place], [place] [id number] tel:+ , [place]. tel: [phone] Associates [facility] Encounter For Alvarado-2 Rahul In Womens Ultrasound Screening 5-201 [place], For [email or web address] 8 Medical PO Box weeks gestation of Center 1522, Luis Felipe Lew, 120, [place], [place], , [place] [id number] tel:+ , [place]. tel: [phone] Angel [place] Encntr for suprvsn Alvarado-0 Rahul In Womens of normal first 3-201 [place], preg, second 8 Medical PO Box trimesterEncounter Center 1522, For Luis Felipe Lew, Screening For 120, [place], [email or web address] [place], [id number], weeks gestation of [place], [place] [id number] tel: , [place]. tel: [phone] Angel [place] Encntr for suprvsn Nov-3 Rahul In Womens of normal first 0-201 [place] [place], preg, first 7 Medical PO Box [email or web address] weeks Center 1522, gestation of Luis Felipe Lew, 120, [place], [place], [id number], [place], [place] [id number] tel: , [place]. tel: [phone] Associates [place] Other viral Rahul In Womens diseases 5-[address], complicating 7 Medical PO Box , first Center 1522, trimesterEncntr for Luis Felipe Lew, suprvsn of normal 120, [place], first preg, first [place], [id number], trimester9 weeks [place], [place] gestation of [id number] tel: , [place]. tel: [phone] Family History Family Member Diagnosis Age At [...] UHC Plan Of [place] - Medicaid [place] [id number] R CI [id number] R CI [id number] Social History Type Description Quantity Date Captured Alcohol Use Details No Caffeine Use Details Unknown Tobacco Use Status Unknown Smoking Status Never smoker Vital Signs Date / Height Weight BMI Pulse Blood Temperature Respiratory Body Head BMI Time: Rate Pressure Rate Surface Circumference percentile Area 216.70 38.3 119/79 2018 lbs 8 mm[Hg] 1:45 kg/m PM eter (2) Chief Complaint And Reason For Visit Unknown Chief Complaint And Reason For Visit Reason For Referral Reason For Referral Unknown Plan Of Care Date Type Action Status Appointment Norma Foote BOOKED Future Order: Radiology Order Complete OB Ultrasound > 14 Ordered Weeks (12031) Date Type Problem Goal Intervention Status Start [...]
--- OUTSIDE RECORDS SUMMARY | 2018-03-04 17:03 | External Medical Summary | Continuity of Care Document ---
:1995 Author Organization [facility] [employer] [place] Address [address] [place], [place] [phone] Phone Care Team Providers Name Role Phone [...] Visit Team Members Angel [place] Rahul In [facility] -[address], Medical [address], [facility] [place], , Luis Felipe [id number], 120, [place], tel:[phone] [place], [id number] , [place]. tel: [phone] Angel [place] Encntr for Rahul In Womens suprvsn of normal -[address], first preg, first Medical [address], [email or web address] weeks [place], [place], gestation of Luis Felipe Lew [id number], 120, [place], tel:+21 [place], [id number] , [place]. tel: [phone] Associates [facility] Other viral Rahul In Womens diseases -[address], complicating Medical [address], , first [place], [place], trimesterEncntr Luis Felipe Lew [id number], for suprvsn of 120, [place] normal first [place], tel:+21 preg, [place], [address] trimester9 weeks [id number] gestation of , [place]. tel: [phone] Family History Family Member Diagnosis Age At [...] name Insurance type Covered libertarian ID Authorization(s) [facility] CI [id number] [facility] CI [id number] Social History Type Description Quantity Date Captured [...]
--- OUTSIDE RECORDS SUMMARY | 2018-03-04 17:03 | External Medical Summary | Continuity of Care Document ---
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 - Other viral diseases complicating - , first trimester Encntr for suprvsn of normal first - preg, first trimester 9 weeks gestation of - Encntr for suprvsn of normal first - preg, first trimester 11 weeks gestation of - Herpes Simplex Virus Active Procedures Procedure Date OB Visit No Charge Results Test Name Date and Time Measure Units Reference Range Abnormal Flag Comments Unknown Advance Directives Directive Yes / No Effective Date File Name Unknown Encounters Encounter Practice Location Reason(s) Diagnoses Date Provider Care Description For Visit Team Members Associates [facility] Encntr for suprvsn Rahul In Women of normal first 3-[address], preg, second 8 Medical [address], [place], For Luis Felipe Lew [id number], Screening For 120, [place] [email or web address] [place], tel:+21 weeks [place], [id number] , [place]. tel: [phone] Angel [place] Encntr for suprvsn Nov-3 Rahul In Womens of normal first 0-[address] [place] [place] [address], preg, first 7 Medical [address], [email or web address] weeks [place], [place], gestation of Luis Felipe Lew [id number], 120, [place], tel:+ [place], [id number] , [place]. tel: [phone] Angel [place] Other viral Nov-1 Rahul In Womens diseases 5-[address], complicating 7 Medical [address], , first [place], [place], trimesterEncntr for Luis Felipe Lew [id number], suprvsn of normal 120, [place] first preg, first [place], tel:+ trimester9 [place], [address] gestation of [id number] , [place]. tel: [phone] Family History Family Member Diagnosis Age At [...] name Insurance type Covered republican ID Authorization(s) R CI [id number] R CI [id number] Social History Type Description Quantity Date Captured Alcohol Use Details No Caffeine Use Details Unknown Tobacco Use Status Unknown Smoking Status Never smoker Vital Signs Date / Height Weight BMI Pulse Blood Temperature Respiratory Body Head BMI Time: Rate Pressure Rate Surface Circumference percentile Area 185.20 32.8 118/69 2018 lbs 0 mm[Hg] 10:33 kg/m AM eter (2) Chief Complaint And Reason For [...]
--- OUTSIDE RECORDS SUMMARY | 2018-03-04 17:03 | External Medical Summary | Continuity of Care Document ---
:1995 Author Organization [facility] Address [address] [place], [place] [phone] Phone Care Team Providers Name Role Phone [...] third trimester 32 weeks gestation of - Encntr for suprvsn [...] third trimester 34 weeks gestation of - Encounter For Screening [...] Team Members Associates [facility] Encntr for suprvsn January- Rahul In Womens of normal first 0-201 [place]. [facility], preg, third 8 Medical PO Box [email or web address] weeks Center 1522, gestation of Luis Felipe Lew, 120, [place], [place], [id number], [place], [place] [id number] tel:+ , [place]. tel: [phone] Associates Song Encntr for suprvsn Apr-2 Rahul In Womens of normal first 5-201 [place]. [facility], preg, third 8 Medical PO Box [email or web address] weeks Center 1522, gestation of Luis Felipe Lew, 120, [place], [place], [id number], [place], [place] [id number] tel:+ , [place]. tel: [phone] Angel [place] Abnormal Pap, Apr-1 Rahul In Womens LSILEncntr for 1-201 [place]. [facility], suprvsn of normal 8 Medical PO Box first preg, third Center 1522, [email or web address] weeks Luis Felipe Lew, gestation of 120, [place], [place], [id number], [place], [place] [id number] tel:+[phone] , [place]. tel:[phone] Angel [place] Apr-0 Rahul In Womens 3-201 [place]. [facility], 8 Medical PO Box Center 1522, Luis Felipe Lew, 120, [place], [place], [id number], [place], [place] [id number] tel:+ , [place]. tel: [phone] Associates [facility] Oth infect w sexl Mar-2 Rahul In Womens mode of transmiss 1-201 [place]. [facility], comp preg, second 8 Medical PO Box triEncntr for Center 1522, suprvsn of normal Luis Felipe Lew, first preg, second 120, [place], [email or web address] weeks [place], , gestation of [place], [place] [id number] tel:+ , [place]. tel: [phone] Associates [facility] Encntr for suprvsn Feb-2 Rahul In Womens of normal first 2-201 [place]. [facility], preg, second 8 Medical PO Box [email or web address] weeks Center 1522, gestation of Luis Felipe Lew, 120, [place], [place], [id number], [place], [place] [id number] tel:+ , [place]. tel: [phone] Associates [facility] Encntr for suprvsn Alvarado-2 Rahul In Womens of normal first 5-201 [place]. [facility], preg, second 8 Medical PO Box [email or web address] weeks Center 1522, gestation of Luis Felipe Lew, 120, [place], [place], [id number], [place], [place] [id number] tel:+ , [place]. tel:[phone] Associates Song Encounter For Alvarado-2 Rahul In Womens Ultrasound Screening 5-201 [place]. [facility], For [email or web address] 8 Medical PO Box weeks gestation of Center 1522, Luis Felipe Lew, 120, [place], [place], [id number], [place], [place] [id number] tel:+ , [place]. tel:[phone] Associates [facility] Encntr for suprvsn Alvarado-0 Rahul In Womens of normal first 3-201 [place]. [facility], preg, second 8 Medical PO Box trimesterEncounter Center 1522, For Luis Felipe Lew, Screening For 120, [place], [email or web address] [place], [id number], weeks gestation of [place], [place] [id number] tel: , [place]. tel: [phone] Associates [facility] Encntr for suprvsn Nov-3 Rahul In Womens of normal first 0-201 [place]. [facility], preg, first 7 Medical PO Box [email or web address] weeks Center 1522, gestation of Luis Felipe Lew, 120, [place], [place], [id number], [place], [id number] tel: , [place]. tel: [phone] Associates [facility] Other viral Nov-1 Rahul In Womens diseases 5-[address] [place], complicating 7 Medical PO Box , first Center 1522, trimesterEncntr for Luis Felipe Lew, suprvsn of normal 120, [place], first preg, first [place], , trimester9 weeks [facility] gestation of [id number] tel: , [place]. tel: [phone] Family History Family Member Diagnosis Age At [...] UHC Plan Of [place] - Medicaid [place] [id number] R CI [id number] R CI [id number] Social History Type Description Quantity Date Captured Alcohol Use Details No Caffeine Use Details Unknown Tobacco Use Status Unknown Smoking Status Never smoker Vital Signs Date / Height Weight BMI Pulse Blood Temperature Respiratory Body Head BMI Time: Rate Pressure Rate Surface Circumference percentile Area 219.10 38.8 118/81 -2018 lbs 1 mm[Hg] 1:41 kg/m PM eter (2) Chief Complaint And Reason For Visit Unknown Chief Complaint And Reason For Visit Reason For Referral Reason For Referral Unknown Plan Of Care Date Type Action Status Appointment Norma Foote BOOKED Future Order: Radiology Order Complete OB Ultrasound > 14 Ordered Weeks (72419) Date Type Problem Goal Intervention Status Start [...]
--- OUTSIDE RECORDS SUMMARY | 2018-03-04 17:03 | External Medical Summary | Continuity of Care Document ---
:1995 Author Organization [facility] Allergies Active Description Code Type Severity Reaction Onset Reported/ Identified Relationship Clinical to Patient Status Yes No Known 55205 3 N/A N/A Drug 0 Allergies Yes No Known Aller Unknown N/A 03/31/2016 Allergies gy Yes No Known No Aller N/A N/A 03/31/2016 Allergies Known gy Aller gies Medications Medication Packaging Start Date Stop Date Route Dosage Sig Tablet 07/30/2017 VALACYCLOVIR 8 take 1 tablet by oral route every 12 hours for 5 days Tablet 08/01/2017 AZITHROMYCIN 7 take 2 tablet by ORAL route every day for 1 day Tablet 08/14/2017 ZITHROMAX 7 take 2 by Oral route on Day 1 then 1 tablet Day 2-5 Tablet 10/16/2017 VALACYCLOVIR 8 take 1 tablet by oral route every 12 hours for 5 days Tablet 12/16/2017 VALACYCLOVIR 8 take 1 tablet by oral route every 12 hours for 5 days Tablet 01/29/2018 ACYCLOVIR take 1 by Oral route every 8 hours until delivery 02/17/2018 PO 1 each Vitamins DAILY Iron 02/17/2018 PO 325 mg DAILY 02/17/2018 PO 400 mg Acyclovir Q8HR Problems Date Dx Attending Type Code Diagnosis Diagnosed By Coded 10/09/2017 Gorge Kay Z36.3 Encounter For Screening For Malformations 10/09/2017 Gorge Kay Z3A.19 19 weeks gestation of 10/16/2017 Gorge Kay Z36.3 Encounter For Screening For Malformations 10/16/2017 [place] Kay3A.19 19 weeks gestation of 10/16/2017 Gorge Kay Z34.02 Encntr for suprvsn of normal first preg, second trimester 10/16/2017 Gorge Kay Z36.3 Encounter For Screening For Malformations 10/16/2017 Gorge Kay Z3A.16 16 weeks gestation of 02/05/2018 Gorge Kay Z34.03 Encntr for suprvsn of normal first preg, third trimester 02/05/2018 Gorge Kay Z3A.36 36 weeks gestation of 02/18/2018 Gorge Kay O26.843 Uterine size-date discrepancy, third trimester 02/18/2018 Gorge Kay Z3A.38 38 weeks gestation of Procedures Code Description [place] [address] OB Visit No 09/17/2017 Charge [id number] Ultrasnd 10/09/2017 exam of preg uterus, compl [id number] OB Visit No 02/05/2018 Charge [id number] Ultrasnd 02/18/2018 preg uterus, flwup/repeat Results Test Result Range L600.2900 - 03/31/16 16:24 PREG QUAL, URINE TEST NEGATIVE NEGATIVE L600.0175 - 03/31/16 19:24 SPECIMEN TYPE, URINE VOIDED-NOT CC-MIDSTR COLOR,URINE YELLOW YELLOW TURBIDITY, URINE SL CLOUDY CLEAR SPECIFIC GRAVITY,URINE >=1.030 1.015-1.025 PH, URINE - DIPSTICK 5.0 5.0-8.0 LEUKOCYTE ESTERASE ,URINE 2+ NEGATIVE NITRITE,URINE NEGATIVE NEGATIVE PROTEIN,URINE - DIPSTICK TRACE NEGATIVE GLUCOSE, URINE - DIPSTICK NEGATIVE NEGATIVE KETONES,URINE - DIPSTICK 2+ NEGATIVE UROBILINOGEN,URINE 0.2 EU/DL NORMAL BILIRUBIN,URINE - DIPSTICK NEGATIVE NEGATIVE BLOOD, URINE 3+ NEGATIVE L600.0175 - 03/31/16 19:24 SPECIMEN TYPE, URINE VOIDED-NOT CC-MIDSTR COLOR,URINE YELLOW YELLOW TURBIDITY, URINE SL CLOUDY CLEAR SPECIFIC GRAVITY,URINE >=1.030 1.015-1.025 PH, URINE - DIPSTICK 5.0 5.0-8.0 LEUKOCYTE ESTERASE ,URINE 2+ NEGATIVE NITRITE,URINE NEGATIVE NEGATIVE PROTEIN,URINE - DIPSTICK TRACE NEGATIVE GLUCOSE, URINE - DIPSTICK NEGATIVE NEGATIVE KETONES,URINE - DIPSTICK 2+ NEGATIVE UROBILINOGEN,URINE 0.2 EU/DL NORMAL BILIRUBIN,URINE - DIPSTICK NEGATIVE NEGATIVE BLOOD, URINE 3+ NEGATIVE WBC,URINE 30-50 /HPF 0-5 RBC,URINE 3-5 /HPF 0-3 SQUAMOUS EPITHELIAL CELL,UR 10-20 BACTERIA,URINE 2+ NEGATIVE CULTURE SET UP,URINE CULT REFLEXED &SETUP M153.0000 - 03/31/16 20:07 URINE CULTURE. CFU/ml Encounters ACCT No. Visit Discharge Status Pt. Type Provider Facility Loc./Unit Complaint Date/Time [id number] 11/08/2013 11/08/2013 CLS Outpatient 13:14:00 23:59:59 [id number] 03/31/2016 03/31/2016 DIS Emergency January, [place] [facility] [id number] 18:41:00 20:56:00 [facility] [id number] 03/03/2018 PEN Preadmit [id number] 00:00:00 [id number] 02/18/2018 02/18/2018 CLS Outpatient Rahul, 15:35:00 23:59:59 [place] Dasilva [id number] 02/18/2018 02/18/2018 CLS Outpatient Rahul, 15:15:00 23:59:59 [place] Dasilva [id number] 02/12/2018 02/12/2018 CLS Outpatient Rahul, 14:15:00 23:59:59 [place] Dasilva [id number] 02/05/2018 02/05/2018 CLS Outpatient Rahul, 13:45:00 23:59:59 [place] Dasilva [id number] 01/28/2018 01/28/2018 CLS Outpatient Rahul, 15:41:00 23:59:59 [place] Dasilva [id number] 01/22/2018 01/22/2018 CLS Outpatient Rahul, 13:45:00 23:59:59 [place] Dasilva [id number] 01/07/2018 01/07/2018 CLS Outpatient Rahul, 13:20:00 23:59:59 [place] Dasilva [id number] 01/07/2018 01/07/2018 CLS Outpatient Rahul, 11:43:00 23:59:59 [place] Dasilva [id number] 12/24/2017 12/24/2017 CLS Outpatient Rahul, 13:20:00 23:59:59 [place] Dasilva [id number] 12/16/2017 12/16/2017 CLS Outpatient Rahul, 13:06:00 23:59:59 Gorge Dasilva [id number] 12/03/2017 12/03/2017 CLS Outpatient Rahul, 14:00:00 23:59:59 [place] Dasilva [id number] 11/06/2017 11/06/2017 CLS Outpatient Rahul, 11:00:00 23:59:59 [place] Dasilva [id number] 10/16/2017 10/16/2017 CLS Outpatient Rahul, 09:27:00 23:59:59 Gorge Dasilva [id number] 10/09/2017 10/09/2017 CLS Outpatient Rahul, 11:35:00 23:59:59 Gorge Dasilva [id number] 10/09/2017 10/09/2017 CLS Outpatient Rahul, 11:15:00 23:59:59 Gorge Dasilva [id number] 09/29/2017 09/29/2017 CLS Outpatient Rahul, 10:52:00 23:59:59 Gorge Dasilva [id number] 09/26/2017 09/26/2017 CLS Outpatient Rahul, 10:08:00 23:59:59 Gorge Dasilva [id number] 09/17/2017 09/17/2017 CLS Outpatient Rahul, 10:30:00 23:59:59 Gorge Dasilva [id number] 09/16/2017 09/16/2017 CLS Outpatient Rahul, 14:37:00 23:59:59 Gorge Dasilva [id number] 08/20/2017 08/20/2017 CLS Outpatient Rahul, 08:30:00 23:59:59 Gorge Dasilva [id number] 08/14/2017 08/14/2017 CLS Outpatient Rahul, 13:15:00 23:59:59 Gorge Dasilva [id number] 08/04/2017 08/04/2017 CLS Outpatient Rahul, 13:48:00 23:59:59 Gorge Dasilva [id number] 08/01/2017 08/01/2017 CLS Outpatient Rahul, 09:04:00 23:59:59 Gorge Dasilva [id number] 07/30/2017 07/30/2017 CLS Outpatient Rahul, 14:15:00 23:59:59 Gorge Dasilva [id number] 07/15/2017 07/15/2017 CLS Outpatient Christofer, 10:41:00 23:59:59 Lissa [id number] 02/26/2018 Document 15:30:00 Registration
[2018-03-04] MEDS: LR 1,000 ML IV PRN (17:30)
[2018-03-04 17:38] VITALS: BMI 42.3
--- NOTE | 2018-03-04 18:19 | Anesthesia Preoperative Report ---
Anesthesia Epidural/Spinal Rec - Date and Time Date: 03/04/18 Procedure: Labor Epidural Plan: Epidural - Vital Signs Vital Signs: Temperature 98.5 F 03/04/18 17:43 Pulse Rate 97 03/04/18 17:43 Respiratory Rate 16 03/04/18 17:43 Blood Pressure 135/74 03/04/18 17:43 Pulse Oximetry 98 03/04/18 17:43 /Para: P:0 Heart Rate: 137 - Medictaions & Allergies Inpatient Medications: Current Medications Acetaminophen (Tylenol) 500 - 1,000 mg PO Q4H PRN PRN Reason: Pain Al Hydroxide/Mg Hydroxide (Maalox Plus) 30 ml PO Q3H PRN PRN Reason: Indigestion Calcium Carbonate (Tums) 500 - 1,000 mg PO Q2H PRN PRN Reason: Indigestion Carboprost Tromethamine (Hemabate) 250 mcg IM O PRN PRN Reason: .Downtime Diphenhydramine HCl (Benadryl) 50 mg PO HS PRN PRN Reason: Sleep Lactated Ringer's (Lactated Ringers) 1,000 mls @ 999 mls/hr IV .Q1H1M PRN Last Admin: 03/04/18 17:30 Dose: 999 mls/hr Lidocaine HCl (Xylocaine-Mpf 1% Vial) 0.2 mg ID O PRN PRN Reason: IV Start Methylergonovine Maleate (Methergine) 0.2 mg IM O PRN Misoprostol (Cytotec) 800 mcg HI ONCE PRN Sodium Chloride (Iv Flush) 10 - 80 ml IV PRN PRN PRN Reason: Flushing Terbutaline Sulfate (Brethine) 0.25 mg SQ PRN PRN Allergies/Adverse Reactions: Allergies Allergy/AdvReac Type Severity Reaction Status Date / Time No Known Allergies Allergy Unverified 03/31/16 18:56 - Home Medications Home Medications: Home Medications Medication Instructions Recorded Confirmed Type NO ROUTINE MEDS #0 03/31/16 History Acyclovir 1 tab PO Q8HR 02/17/18 02/17/18 History Ferrous Sulfate [Iron] 325 mg PO DAILY 02/17/18 02/17/18 History Vit Calc,Iron,Folic 1 each PO DAILY 02/17/18 02/17/18 History [ Vitamins] - Medical History Gastrointestional: Reports: Gastrointestinal Bleeding, Morbid Obesity Other History: Reports: Now - Surgical History HEENT Surgeries: Reports: Tonsillectomy (at age 7), Other (adenoids) Anesthesia Reactions: None Hx Family Anesthesia Reaction: No History of Motion Sickness: No - Social History Smoking Status: Never smoker Second Hand Exposure: No Substance Use Type: does not use Alcohol Intake Frequency: does not drink Hx Chewing Tobacco Use: No - Pertinent Findings Lab Data: CBC and BMP 03/04/18 17:28 - Physical Exam Respiratory Exam: lungs clear, bilateral breath sounds equal Cardiovascular Exam: regular rate and rhythm - Airway Assessment Mallampati Score: I TMD: 3 Fingerbreadths Neck Extension: good Overall Assessment: no airway concerns - ASA ASA Score: 3 - Discussion Discussion: Discussed risks/options/alternatives of anesthesia and questions answered. Patient consents. Nursing pain assessment noted. Anesthesia Discussion: family member Attestation Statement: Prior to the delivery of any anesthetic medication, I examined the patient, developed the plan, obtained the patient's consent and discussed the risk and benefits of the procedure with the patient/guardian.
[2018-03-05] MEDS ORDERED: AMPICILLIN 2 GM in NS 100 ML IV ONE
[2018-03-05] MEDS: AMPICILLIN 1 GM in NS 100 ML IV SCH ×5 (04:40→23:34)
[2018-03-05] MEDS ORDERED: OXYTOCIN DRIP 30 UNIT/500 ML ML IV PRN (06:00)
[2018-03-05] MEDS: D5LR 1,000 ML IV PRN ×2 (06:00→16:30)
[2018-03-05] MEDS ORDERED: DiphenhydrAMINE 50 MG/ML INJECTION IVP PRN (08:23)
[2018-03-05] MEDS ORDERED: ROPIVACAINE 1% 10MG/ML INJ 200 MG, SUFentanil 50 MCG in NS 100 ML EPI PRN (08:23)
[2018-03-05] MEDS ORDERED: ONDANSETRON 4 MG/2 ML INJECTION IVP PRN (08:23)
[2018-03-05] MEDS ORDERED: NALOXONE 0.4 MG/ML INJECTION IVP PRN (08:23)
[2018-03-05] MEDS: LR 1,000 ML IV PRN ×3 (08:30→17:00)
[2018-03-05] MEDS ORDERED: CITRIC ACID/SODIUM CITRATE 30ml PO ONE (17:41)
[2018-03-05] MEDS ORDERED: CEFAZOLIN 1 G INJECTION IVP ONE (17:41)
[2018-03-05] MEDS ORDERED: CEFAZOLIN PREMIX (MC ONLY) 2 GM/50 ML BAG IV ONE (17:41)
[2018-03-05] MEDS ORDERED: FAMOTIDINE PB 20 MG/50 ML BAG IV ONE (17:41)
[2018-03-05] MEDS: OXYTOCIN BOLUS BAG 30 UNIT/500 ML ML IV SCH ×2 (18:16→18:45)
[2018-03-05] MEDS ORDERED: MORPHINE SULFATE PF 5mg/10ml INJ (Duramorph) ONE (18:16)
[2018-03-05] MEDS ORDERED: AMPICILLIN 2,000 MG in NS 100 ML IV SCH (20:15)
[2018-03-05] MEDS ORDERED: GENTAMICIN - PHARMACY CONSULT MC ONE (20:15)
[2018-03-05] MEDS: CLINDAMYCIN PB 900 MG/50 ML BAG IV SCH (20:20)
[2018-03-05] MEDS ORDERED: SIMETHICONE 80 MG CHEWABLE TABLET PO PRN (21:01)
[2018-03-05] MEDS ORDERED: DiphenhydrAMINE 25 MG CAPSULE PO PRN (21:01)
[2018-03-05] MEDS ORDERED: OXYTOCIN DRIP 30 UNIT/500 ML ML IV SCH (21:01)
[2018-03-05] MEDS ORDERED: ACETAMINOPHEN 500 MG TABLET PO PRN (21:01)
[2018-03-05] MEDS ORDERED: HYDROCORTISONE 2.5% CREAM 30gm RECTALLY PRN (21:01)
[2018-03-05] MEDS ORDERED: CALCIUM CARBONATE Chewable 500mg TABLET PO PRN (21:01)
[2018-03-05] MEDS ORDERED: ONDANSETRON ODT 4 MG TABLET PO PRN (21:01)
[2018-03-05] MEDS: HYDROCODONE/APAP 5mg/325mg TABLET PO PRN (21:03)
[2018-03-05] MEDS: IBUPROFEN 800 MG TABLET PO PRN (21:03)
[2018-03-05] MEDS: AMPICILLIN 2 GM in NS 100 ML IV SCH (21:22)
[2018-03-05] MEDS: D5LR 1,000 ML IV SCH (22:04)
[2018-03-05] MEDS: GENTAMICIN 120 MG in NS 100 ML IV SCH (22:05)
[2018-03-05] MEDS: SIMETHICONE 80 MG CHEWABLE TABLET PO SCH (23:27)
[2018-03-06] MEDS: AMPICILLIN 2 GM in NS 100 ML IV SCH ×4 (03:45→21:49)
[2018-03-06] MEDS: GENTAMICIN 120 MG in NS 100 ML IV SCH ×3 (04:10→20:33)
[2018-03-06] MEDS: CLINDAMYCIN PB 900 MG/50 ML BAG IV SCH ×3 (05:00→21:16)
[2018-03-06] MEDS: HYDROCODONE/APAP 5mg/325mg TABLET PO PRN ×4 (07:37→20:39)
[2018-03-06] MEDS: DOCUSATE CALCIUM 240 MG CAPSULE PO SCH ×2 (07:38→12:04)
[2018-03-06] MEDS: D5LR 1,000 ML IV SCH ×2 (08:10→21:48)
--- NOTE | 2018-03-06 12:16 | Progress Note ---
DATE 03/06/2018 at 0030 This is a patient that I did a on last night. Delivery was approximately 6:15 p.m. A short while ago, I was paged by the nurse taking care of her reporting that the pad was more saturated than would typically be present. I came in to evaluate in person. I also ordered a hemogram. The hemogram at 2139 p.m. was 9.7 and at 0010 a.m. was 9.1. Vital signs are stable. The dressing was evaluated and it was not completely saturated but probably two-thirds to three-fourths covered with blood. I removed the tape and the dressing and there was no standing or pool of blood behind it. I then pressed against the edges of the incision all the way across and expressed no further blood. I cleaned the area slightly and then put a new Telfa and ABD over the top of it and re-taped it. I pressed on the fundus and it was firm and there was a nonsurgical abdomen, nontender and no guarding, so I don't think we are having internal bleeding. I think we may have some bleeding from the subcutaneous tissue although I really couldn't express anything additional. Baby has been in special care so the patient has been up more than a typical C -section, going back to the special care unit. Will continue to observe the dressing tonight and I will repeat a hemogram in the morning and we will watch for changes in that manner. Questions were answered to the patient's satisfaction. [facility]
[2018-03-06] MEDS: SIMETHICONE 80 MG CHEWABLE TABLET PO SCH ×4 (13:06→23:21)
[2018-03-06] MEDS: IBUPROFEN 800 MG TABLET PO PRN ×2 (15:23→23:21)
[2018-03-06] MEDS: SALINE FLUSH 10ml SYRINGE IV PRN ×2 (17:28→20:27)
--- NOTE | 2018-03-06 19:34 | OB/GYN Progress Note ---
OB-Progress Note Free Text - Date Date: 03/06/18 - Progress Note Progress Note: doing ok hgb stable will dc antibiotics cornelio q&a-krb
[2018-03-07] MEDS: HYDROCODONE/APAP 5mg/325mg TABLET PO PRN ×5 (01:19→21:00)
[2018-03-07] MEDS: IBUPROFEN 800 MG TABLET PO PRN ×2 (07:37→14:58)
--- NOTE | 2018-03-07 11:09 | Operative Note ---
DATE OF SURGERY: 03/05/2018 PREOPERATIVE DIAGNOSES 1. 22-year-old white female G1, P0 at 40.2 weeks gestational age. 2. Cervidil cervical ripening. 3. Pitocin induction for postdates gestation. 4. Artificial rupture of membranes. 5. Epidural anesthesia. 6. Intrauterine pressure monitor. 7. Nonreassuring heart tones. POSTOPERATIVE DIAGNOSES 1. Occiput posterior presentation. 2. Nuchal cord x 2. 3. Male , 4642 g, Apgars, 10 pounds 4 ounces, (Ras Lucio). PROCEDURE: Primary low transverse section. EBL: 800 mL. ANESTHESIA: Epidural by Adam Welch CRNA SURGEON: Gorge Kay MD MEDICAID ANALYST: Giuliano Padilla, social service assistant. COMPLICATIONS: None. This is a patient who made it to complete dilation with Pitocin at 16 but then the infant began having spontaneous decelerations in the variable and late form. This was even before we began pushing. Decelerations went down into the 60s. Infant was OP and known to be LGA so decision was made to switch to C- section for delivery based on nonreassuring heart tones. The patient was placed in stirrups for the just in case we needed access to elevate the head from below. This was fortunately not needed. Once the delivery was completed then the patient's legs were taken out of stirrups and back to the usual position. DESCRIPTION OF PROCEDURE After adequate epidural anesthesia, the patient was prepped and draped in the left lateral decubitus position. A Pfannenstiel skin incision was made with a sharp knife and carried down the fascia, which was incised transversely with the Kumar scissors. The rectus fascia was bluntly and sharply dissected off the rectus muscle. The rectus muscle was divided, and the peritoneum was isolated, elevated, entered with the Metzenbaum scissors and extended cephalad and caudad. The bladder blade was then inserted. The lower vesicouterine fold of the peritoneum was isolated and incised transversely. The bladder was bluntly dissected off the lower uterine segment. The bladder blade was reinserted. Then using a sharp knife, a transverse incision was made in the lower uterine segment. This was extended with my fingers. was delivered from the vertex position without difficulty. There was a double nuchal cord that was reduced. was rotated from OP to OT and then head elevated and delivered. The placenta was expressed manually and was intact. The uterus was then allowed to fall upon the external abdominal wall. The endometrial cavity was cleansed using moist lap sponges. The uterus was closed using 0-Monocryl in a running locking fashion bilaterally from lateral to medial. Hemostasis was confirmed. The bladder flap was then reapproximated with the visceral peritoneum using 3-0 Vicryl in a running nonlocking fashion. The posterior cul-de-sac was cleansed of old blood clots and the tubes and ovaries were examined and found to be normal in size, shape and appearance. After hemostasis was again confirmed, the uterus was then carefully returned to the abdominal cavity. The abdomen was then closed in layers. The peritoneum was closed using 2-0 Vicryl in running nonlocking fashion. The fascia was closed using 0-Vicryl in a running nonlocking fashion bilaterally from the lateral aspects medially. Hemostasis was achieved with the subcutaneous tissue and then the skin was closed using wide rivera in a serial fashion. Three horizontal mattress sutures with Monocryl were placed to keep the skin edges everted. The patient tolerated the procedure well and went to the recovery room in stable condition. Pad, sponge and needle counts were correct and urine postop was clear and free flowing. MTDD
--- NOTE | 2018-03-07 12:24 | OB/GYN Progress Note ---
OB-PP Progress Note - General PPD2 Maternal blood type: B+ Maternal Rubella Status: Immune - Subjective Date: 03/07/18 Lochia: Minimal Pain: controlled Voiding: voiding - Objective Vital Signs: Last Vital Signs Temp 97.9 F 03/07/18 05:00 Pulse 91 03/07/18 05:00 Resp 17 03/07/18 05:00 BP 108/57 03/07/18 05:00 Pulse Ox 100 03/07/18 05:00 General: alert and oriented Abdomen: fundus firm, non-tender Incision: clean, no erythema, dry, intact Extremities: non-tender - Assessment Assessment: Primary C/S - Plan Plan: routine care Expected date of discharge: 03/08/18
[2018-03-07] MEDS: SIMETHICONE 80 MG CHEWABLE TABLET PO SCH (14:37)
[2018-03-08] MEDS: SIMETHICONE 80 MG CHEWABLE TABLET PO SCH ×3 (00:47→09:33)
[2018-03-08] MEDS: DOCUSATE CALCIUM 240 MG CAPSULE PO SCH ×2 (00:49→09:33)
[2018-03-08] MEDS: IBUPROFEN 800 MG TABLET PO PRN (03:33)
[2018-03-08] MEDS: HYDROCODONE/APAP 5mg/325mg TABLET PO PRN ×2 (03:34→09:33)
[2018-03-08 07:40] VITALS: RESP 18
--- NOTE | 2018-03-08 09:39 | OB/GYN Progress Note ---
OB-PP Progress Note - General PPD3 Maternal blood type: B+ Maternal Rubella Status: Immune - Subjective Date: 03/08/18 Lochia: Minimal Pain: controlled Voiding: voiding - Objective Vital Signs: Last Vital Signs Temp 98.3 F 03/08/18 07:40 Pulse 97 03/08/18 07:40 Resp 18 03/08/18 07:40 BP 121/73 03/08/18 07:40 Pulse Ox 97 03/08/18 07:40 General: alert and oriented Abdomen: fundus firm, non-tender Incision: normal, clean, no erythema, dry, intact Extremities: non-tender - Assessment Assessment: Primary C/S - Plan Plan: routine care, discharge home, continue PNV DC rivera
[2018-03-08 13:21] VITALS: BP 131/81; PULSE 94; TEMP 97.9; O2SAT 99
== END 2018-03-08 13:35 | disposition home or self-care (01) | DRG 766 ==
LOC: MC 03-04 16:55
PROVIDERS: ADMIT Obstetrics & Gynecology; ATTEND Obstetrics & Gynecology